=== PATIENT | male | born 1970 | race Caucasian/White ===

== ENCOUNTER 2017-05-08 08:25 | Emergency (ER) | payer OTHER ==
[2017-05-08 08:31] VITALS: BP 153/100; PULSE 93; TEMP 98.5; BMI 30.7
--- NOTE | 2017-05-08 08:35 | PDOC ---
History of Present Illness - General Chief Complaint: Injury Stated Complaint: RT KNEE PAIN Time Seen by Provider: 05/08/17 08:35 History Source: Patient Exam Limitations: No Limitations - History of Present Illness Initial Comments: 05/08/17 09:46 47 yo generally healthy man has chronic problems with his right knee giving out. Today that happened and he fell to the floor and hurt his right knee and right hip. Isolated injury no other complaints. Timing/Duration: momentarily Severity: mild Modifying Factors: worse with: cold therapy, eating, immobilization, medication , movement, rest, other Associated Symptoms: denies: denies symptoms, chest pain, cough, diaphoresis, fever/chills, headaches, loss of appetite, malaise, nausea/vomiting, rash, seizure, shortness of breath, syncope, weakness, other Past History - Past Medical History Allergies/Adverse Reactions: Allergies Allergy/AdvReac Type Severity Reaction Status Date / Time No Known Allergies Allergy Verified 05/08/17 08:26 Home Medications: Ambulatory Orders No Home Medications 0 dose .ROUTE UTDICT 01/27/13 Anemia: No Asthma: No COPD: No Diabetes: No HTN: No Kidney Stones: Yes - Immunization History Immunization Up to Date: Yes - Suicide/Smoking/Psychosocial Hx Smoking Status: Yes Smoking History: Current every day smoker Years of Tobacco Use: 31 Have you smoked in the past 12 months: Yes Number of Cigarettes Smoked Daily: 20 Information on smoking cessation initiated: Yes 'Breaking Loose' booklet given: 05/08/17 Hx Alcohol Use: No Drug/Substance Use Hx: No Substance Use Type: None Review of Systems - Review of Systems Able to Perform ROS?: Yes Is the patient limited [place] proficient: No Constitutional: No: Symptoms Reported HEENTM: No: Symptoms Reported Respiratory: No: Symptoms reported Cardiac (ROS): No: Symptoms Reported : No: Symptoms Reported Musculoskeletal: No: Symptoms Reported Integumentary: No: Symptoms Reported Neurological: No: Symptoms reported Psychiatric: No: Anxiety, Depression Endocrine: No: Symptoms Reported Hematologic/Lymphatic: No: Symptoms Reported All Other Systems: Reviewed and Negative *Physical Exam - Vital Signs Last Vital Signs Temp Pulse Resp BP Pulse Ox 98.5 F 93 H 20 153/100 97 05/08/17 08:25 05/08/17 08:25 05/08/17 08:25 05/08/17 08:25 05/08/17 08:25 - Physical Exam General Appearance: Yes: Nourished. No: Apparent Distress HEENT: positive: EOMI, ZACHARY, Normal ENT Inspection Neck: positive: Supple. negative: Tender Respiratory/Chest: positive: Lungs Clear, Normal Breath Sounds Cardiovascular: positive: Regular Rhythm, Regular Rate. negative: Murmur Gastrointestinal/Abdominal: positive: Normal Bowel Sounds, Flat, Soft Male Genitalia: positive: other (deferred) Rectal Exam: positive: deferred Lymphatic: negative: Adenopathy, Tenderness Musculoskeletal: positive: Normal Inspection Extremity: positive: Other (No Effusion, No Joint Space Tenderness No Ligamentous Laxity, No Crepetance, No Point specific Bony tenderness, Limb NV intact distally, Also has some pain with range of motion through the right hip.) Neurologic: positive: Fully Oriented, Alert, Normal Mood/Affect Medical Decision Making - Medical Decision Making 05/08/17 09:57 Xrays by my interpretation show some degenerative changes but no fx or dislocatin *DC/Admit/Observation/Transfer Diagnosis at time of Disposition: Knee sprain Qualifiers: Encounter type: initial encounter Involved ligament of knee: unspecified ligament Laterality: right Qualified Code(s): S83.91XA - Sprain of unspecified site of right knee, initial encounter Fall Qualifiers: Encounter type: initial encounter Qualified Code(s): W19.XXXA - Unspecified fall, initial encounter - Discharge Dispostion Disposition: HOME Condition at time of disposition: Good - Referrals Referrals: Robert Duke MD [Staff Physician] - - Patient Instructions Printed Discharge Instructions: DI for Knee Sprain Additional Instructions: Aaron- I am sorry this happened to you this morning. Follow up with Dr. Duke. Return to us if any problems. Good luck with the stressful load you are carrying right now caring for your mom. Motrin should probably be enough for the pain. Best- Dr. Tom Sutton - Post Discharge Activity Forms/Work/School Notes: Back to Work
[2017-05-08] MEDS ORDERED: KETOROLAC TROMETHAMINE 60 MG/2 ML VIAL IM ONE (08:52)
[2017-05-08] MEDS ORDERED: KETOROLAC TROMETHAMINE 60 MG/2 ML VIAL ONE (09:26)
[2017-05-08] MEDS ORDERED: IBUPROFEN 400 MG TABLET (FP) PO ONE ×2 (09:29→09:30)
== END 2017-05-08 10:15 | disposition home or self-care (01) ==
LOC: FER 08:25
DX: S83.91XA Sprain of unspecified site of right knee, initial encounter (principal); W18.39XA Other fall on same level, initial encounter; Y93.89 Activity, other specified; Y92.9 Unspecified place or not applicable
CPT/HCPCS: 73523-TC; 73562-TC-RT; 99281-25

== ENCOUNTER 2019-12-02 10:05 | Emergency (ER) | payer BC, OTHER ==
[2019-12-02 10:10] VITALS: BP 155/90; PULSE 86; TEMP 98.5; BMI 45.0
[2019-12-02] MEDS ORDERED: IBUPROFEN 600 MG TABLET (FP) PO ONE ×3 (10:36→10:49)
== END 2019-12-02 10:56 | disposition home or self-care (01) ==
LOC: FER 10:05
DX: S49.90XA Unspecified injury of shoulder and upper arm, unspecified arm, initial encounter (principal)
CPT/HCPCS: 73030-TC-RT-FY; 99284-25

== ENCOUNTER 2022-08-10 10:37 | Emergency (ER) | payer BC, OTHER ==
[2022-08-10 10:55] VITALS: BP 143/87; PULSE 100; RESP 20; TEMP 99.9; BMI 44.3
[2022-08-10 11:36] LABS: CALCIUM OXALATE CRYSTALS FEW /hpf (NONE SEEN); EPITHELIAL CELLS FEW /hpf; URINE SPERM TRACE
== END 2022-08-10 13:25 | disposition home or self-care (01) ==
LOC: FER 10:37
DX: R31.0 Gross hematuria (principal)
CPT/HCPCS: 74176-TC; 81003; 81015; 87086; 99284-25

== ENCOUNTER 2022-09-27 04:41 | Emergency (ER) | payer BC ==
[2022-09-27 04:58] VITALS: BP 135/88; PULSE 100; RESP 18; TEMP 98.1; BMI 46.0
[2022-09-27 06:51] LABS: EPI CELLS 6 /uL (0-25.1); HYALINE CASTS 1 /uL (0-3.1); PH,URINE 5.5 (5.0-8.0); URINE APPEARANCE CLOUDY; URINE BACTERIA 1 /uL (0-1359); URINE BILIRUBIN NEGATIVE (NEGATIVE); URINE COLOR ORANGE; URINE GLUCOSE (UA) NEGATIVE (NEGATIVE); URINE KETONE NEGATIVE (NEGATIVE); URINE LEUK ESTERASE TRACE (NEGATIVE); URINE NITRITE NEGATIVE (NEGATIVE); URINE PROTEIN 1+ (NEGATIVE); URINE RBC 18457 /uL (0-23.9); URINE WBC 46 /uL (0-25.8)
== END 2022-09-27 06:57 | disposition home or self-care (01) ==
LOC: FER 04:41
DX: R31.9 Hematuria, unspecified (principal)
CPT/HCPCS: 81003; 87086; 99283-25

== ENCOUNTER 2022-10-18 12:36 | Emergency (ER) | payer BC ==
[2022-10-18 12:52] VITALS: BP 150/95; PULSE 94; RESP 18; TEMP 98.8; BMI 44.4
[2022-10-18] MEDS ORDERED: SODIUM CHLORIDE 1,000 ML IV ONE (13:06)
[2022-10-18] MEDS ORDERED: ACETAMINOPHEN 325 MG TABLET (FP) PO ONE (13:14)
[2022-10-18] MEDS ORDERED: ACETAMINOPHEN 325 MG TABLET (FP) ONE (13:25)
[2022-10-18 13:47] LABS: INR 1.01 (0.83-1.09); PROTHROMBIN TIME (PATIENT) 11.6 SEC (9.7-13.0)
[2022-10-18 13:54] LABS: ALBUMIN 4.1 g/dl (3.4-5.0); BILIRUBIN,TOTAL 1.2 mg/dl (0.2-1); CALCIUM 9.3 mg/dl (8.5-10); CREATININE 0.9 mg/dl (0.55-1.3); HEMATOCRIT 47.6 % (35.4-49); HEMOGLOBIN 15.9 G/dL (11.7-16.9); MCH 30.3 pg (25.7-33.7); MCHC 33.5 g/dl (32.0-35.9); MEAN CELL VOLUME 90.4 fl (80-96); MEAN PLT VOLUME 8.2 fl (7.5-11.1); PLATELET COUNT 257.9 10^3/uL (134-434); POTASSIUM 3.8 mmol/L (3.5-5.1); RBC 5.26 10^6/uL (4.00-5.60); RDW 14.8 % (11.9-15.9); TOT PROT 6.9 g/dl (6.4-8.2); WHITE BLOOD COUNT 7.3 10^3/uL (4.0-10.8)
[2022-10-18 13:59] LABS: PLATELET ESTIMATE ADEQUATE
[2022-10-18 14:12] LABS: EPITHELIAL CELLS RARE /hpf
== END 2022-10-18 14:59 | disposition home or self-care (01) ==
LOC: FER 12:36
PROC: 3E0337Z Introduction of Electrolytic and Water Balance Substance into Peripheral Vein, Percutaneous Approach (ICD-10-PCS; principal; 2022-10-18)
DX: M54.50 Low back pain, unspecified (principal); R31.0 Gross hematuria; R10.32 Left lower quadrant pain
CPT/HCPCS: 36415; 80053; 81003; 81015; 82550; 82553; 85027; 85610; 87086; 99284-25

== ENCOUNTER 2022-11-13 10:57 | Emergency (ER) | payer BC ==
[2022-11-13] MEDS ORDERED: ONDANSETRON *ODT* 4 MG TABLET SL ONE (11:01)
[2022-11-13] MEDS ORDERED: LORazepam 1 MG TABLET PO ONE (11:02)
[2022-11-13] MEDS ORDERED: ASPIRIN 81 MG CHEWABLE TABLETS PO ONE (11:11)
[2022-11-13] MEDS ORDERED: ASPIRIN 81 MG CHEWABLE TABLETS ONE (11:31)
[2022-11-13] MEDS ORDERED: ONDANSETRON *ODT* 4 MG TABLET ONE (11:31)
[2022-11-13 11:45] VITALS: RESP 20; TEMP 99; BMI 39.1
[2022-11-13 11:46] LABS: HEMATOCRIT 46.3 % (35.4-49); HEMOGLOBIN 15.7 G/dL (11.7-16.9); MCH 30.5 pg (25.7-33.7); MEAN CELL VOLUME 89.7 fl (80-96); MEAN PLT VOLUME 8.1 fl (7.5-11.1); PLATELET COUNT 255.4 10^3/uL (134-434); RBC 5.16 10^6/uL (4.00-5.60); RDW 14.4 % (11.9-15.9); WHITE BLOOD COUNT 6.8 10^3/uL (4.0-10.8)
[2022-11-13 11:54] LABS: ALBUMIN 3.9 g/dl (3.4-5.0); BILIRUBIN,TOTAL 1.2 mg/dl (0.2-1); CALCIUM 9.3 mg/dl (8.5-10); CREATININE 0.7 mg/dl (0.55-1.3); POTASSIUM 3.8 mmol/L (3.5-5.1); TOT PROT 6.9 g/dl (6.4-8.2)
[2022-11-13 11:57] VITALS: BP 123/87
[2022-11-13 12:42] VITALS: PULSE 83
[2022-11-13 13:08] LABS: N-TERMINAL BNP 45.3 pg/ml (5-125)
[2022-11-13 13:09] LABS: PLATELET ESTIMATE ADEQUATE
== END 2022-11-13 12:43 | disposition home or self-care (01) ==
LOC: FER 10:57
DX: R06.00 Dyspnea, unspecified (principal); E80.7 Disorder of bilirubin metabolism, unspecified; R25.1 Tremor, unspecified; R11.0 Nausea; F41.9 Anxiety disorder, unspecified; Z20.822 Contact with and (suspected) exposure to COVID-19
CPT/HCPCS: 0241U-QW; 36415; 71046-TC-FY; 80053; 83880; 84484; 85027; 93005; 99285-25; Q0162

== ENCOUNTER 2023-07-20 13:27 | Emergency (ER) | payer BC ==
[2023-07-20 13:43] VITALS: BP 146/98; PULSE 98; RESP 18; TEMP 97.8; BMI 41.5
== END 2023-07-20 14:35 | disposition home or self-care (01) ==
LOC: FER 13:27
DX: J06.9 Acute upper respiratory infection, unspecified (principal); R50.9 Fever, unspecified; R05.9 Cough, unspecified; R53.1 Weakness; R53.81 Other malaise; R07.0 Pain in throat; Z20.822 Contact with and (suspected) exposure to COVID-19
CPT/HCPCS: 0241U-QW; 99283-25

== ENCOUNTER 2024-01-11 12:39 | Emergency (ER) | payer BC ==
[2024-01-11 13:02] VITALS: BP 132/89; PULSE 89; RESP 18; TEMP 98.4; BMI 41.0
[2024-01-11 13:44] LABS: HEMATOCRIT 48.9 % (35.4-49); HEMOGLOBIN 15.6 G/dL (11.7-16.9); MCH 28.7 pg (25.7-33.7); MCHC 31.9 g/dl (32.0-35.9); MEAN CELL VOLUME 89.9 fl (80-96); MEAN PLT VOLUME 8.3 fl (7.5-11.1); PLATELET COUNT 256.1 10^3/uL (134-434); RBC 5.44 10^6/uL (4.00-5.60)
[2024-01-11 14:03] LABS: ALBUMIN 4.4 g/dl (3.4-5.0); CALCIUM 9.7 mg/dl (8.5-10.1); CREATININE 0.9 mg/dl (0.6-1.3); POTASSIUM 4.1 mmol/L (3.5-5.1); TOT PROT 6.8 g/dl (6.4-8.2)
[2024-01-11 14:49] LABS: PLATELET ESTIMATE ADEQUATE
== END 2024-01-11 14:40 | disposition home or self-care (01) ==
LOC: FER 12:39
DX: R42 Dizziness and giddiness (principal); R11.0 Nausea
CPT/HCPCS: 36415; 80053; 84484; 85027; 93005; 99285-25

== ENCOUNTER 2024-06-11 11:27 | Emergency (ER) | payer BC ==
[2024-06-11 11:55] VITALS: BP 145/70; PULSE 108; RESP 20; TEMP 98.4; BMI 43.2
== END 2024-06-11 12:08 | disposition home or self-care (01) ==
LOC: FER 11:27
DX: R05.9 Cough, unspecified (principal); B34.9 Viral infection, unspecified
CPT/HCPCS: 99283-25; 99285-25